=== PATIENT | male | born 1965 | race Caucasian/White ===

== ENCOUNTER 2023-09-19 17:00 | Inpatient (IN) | payer OTHER, MEDICAID, SELFPAY ==
[2023-09-19] VITALS (13 sets, daily range): BP systolic 118–186; BP diastolic 68–105; BMI 26.8
--- NOTE | 2023-09-19 08:58 | W.PN.CARDCBS ---
Today's Communication / Plan
-
MICRA leadless pacemaker implant
wound care consult
Impression / Plan
-
PCP: Floyd Solano MD
CDY: Nestor Richards DO
58 y/o, PMH sig for Inferior STEMI with distal RCA PCI (2016), residual CAD in LAD, mid RCA that is medically managed, 2nd deg AVB/Mobitz I with baseline bradycardia, DM, HTN, HLD, [id number], mild cognitive impairment, prior infected right heel
non-healing wound (2016) and osteomyelitis right foot s/p 4th toe amputation with 5th toe base resection with flap closure that failed (08/01/23) and is managed by wound care. EF was moderately reduced to 44% at time of STEMI. Lives at [place]
[facility] [address]. Daily pipe use, but no alcohol for 3 years.
Presented to [facility] on 09/15 with chest pain and dyspnea. CXR with cardiomegaly, CHF. EKG with 2nd deg AVB/Mobitz II as well as CHB with rates 30-50s.
Transferred for MICRA leadless pacemaker implant today. Decision for MICRA based on osteomyelitis and high risk for infection as well as CKD and likely future need for hemodialysis.
IMPRESSION:
CHB/2nd Deg AVB/Mobitz I & II
Non reversible symptomatic bradycardia
Right foot osteomyelitis, prior Left great toe and 2nd toe amputation
Right 4th toe amputation with 5th toe base resection, 08/01/23 w/failed rotation flap closure (wound care with [facility])
Cardiomyopathy
Chronic Systolic HFmrEF 44%
CAD, prior STEMI w/RCA PCI (2016)
Residual CAD LAD, mid RCA- medical management
DM
HTN
HLD
[id number]
GERD
Mild cognitive impairment
PLAN:
Pt is in CHB with rates 30-50
High infection risk d/t osteo, long history of recurrent infections, and possible need for HD in the future
Plan for MICRA leadless device implant
On max sandie GDMT for HF- farxiga, torsemide, lisinopril, amlodipine
Had been intolerant of beta didier previously d/t bradycardia/HB- consider starting beta didier post for cardiomyopathy/HF management
No recent echo noted- would have primary cardiology manage this as outpt
CAD- HS troponins remained flat at 75, continue aspirin, plavix, atorvastatin, lisinopril
Podiatry (Dr. Jordan) managing osteomyelitis and post surgical management with wound care through [facility]- will continue at d/c
Monitor overnight on tele post device implant
wound care consult while here
Likely d/c in AM
Progress Note - Warp Knit Operator
Subjective
Date of Service: September 19, 2023
Physical Exam
Physical Exam
AAOx3, MAEE 5/5
RRR S1 S2 no murmurs, bradycardia
CTA bilat, non labored
soft abd, + bs
trace to +1 edema bilat ankles
Left foot- well healed great toe/2nd toe amputation, doppler PT +2
Right foot- 4th great toe amputation with open wound/brown and white eschar in wound, dressing dry and intact, doppler PT +2
--- NOTE | 2023-09-19 13:20 | WOUNDNOTE ---
Right 4th Toe amputation site
--- NOTE | 2023-09-19 13:21 | WOUNDNOTE ---
[facility] RN NOTE: Reviewed chart, met with patient. Patient is s/p prior osteomyelitis right foot s/p 4th toe amputation with 5th toe base resection with flap closure that failed (08/01/23) and is managed by his business management analyst and VN. Patient reports that VN
perform wound care 2-3 times weekly with collagen. A moderate amount of sanguinous, non-odorous drainage noted on dressing. Patient reports this is usual. Wound cleaned and local wound care completed. Sacrum intact. Will continue to follow as
needed. Discharge and careplan updated.
[2023-09-19 14:10] LABS: Glucose - Point of Care 81 mg/dl (70-99)
--- NOTE | 2023-09-19 15:36 | ITS.CL.PACE ---
[facility] - Pacemaker Implant
Pacemaker Implant
Procedure Report:
LEADLESS PACEMAKER IMPLANTATION
DATE: September 19, 2023
Primary product inspection supervisor: Dr. Mansoor Watson
INDICATION:
Nonreversible symptomatic bradycardia due to high-grade AV block with no reversible cause. Periods of complete heart block. Symptomatic.
Additionally he has been prone to systemic infection including osteomyelitis. He has severe renal insufficiency and it is expected he will likely need hemodialysis in the near future.
longwall headgate operator: Dr Moises Byrd
PROCEDURE:
Sedation provided via the anesthesia department.
Femoral intravenous access is obtained. Right femoral venous access initially with an 8 Bhutanese sheath progressively dilated upwards to allow placement of the Medtronic Micra 27 Bhutanese introducer venous sheath.
The Medtronic Micra delivery system (deflectable catheter with Micra device) was then introduced via the introducer/sheath into the RA. The sheath was then withdrawn to the level of the IVC. Using multiple fluoroscopic views, the delivery system was
then guided across the TV into the RV. The Micra device was deployed and had to be repositioned several times until finally achieving an optimal location. At every deployment, prior to deployment angiography found that the sheath tip/device was up
against the septum in the GERA view and in the ZHENG view an anterior space sign was always observed. A basal septal location provided the best and most stable sensing and capture. Testing demonstrated adequate and stable parameters. Pull and hold
test was successful and repeat testing demonstrated stable parameters. The tether was removed and repeat testing demonstrated stable parameters. The introducer / sheath were removed.
Figure of 8 stitch was used to close the venous access sites.
DEVICE:
Medtronic MICRA AVR system [id number]
Capture threshold: 0.88 V @0.24 ms
R wave sensing 4.8 mV
Pacing impedance: 470 ohms
Wiliam pacing mode: VDD 60 - 130 ppm
COMPLICATIONS: None
SUMMARY / RECOMMENDATIONS:
Implantation of leadless pacing system
[2023-09-19 16:24] LABS: Glucose - Point of Care 126 mg/dl (70-99)
[2023-09-19] MEDS: NORVASC 10 MG PO (16:48)
[2023-09-19] MEDS: NOVOLOG FLEXPEN-MODERATE RESISTANCE SC (17:50)
[2023-09-19] MEDS: LOW STRENGTH ASPIRIN 81 MG PO (17:59)
[2023-09-19] MEDS: CRESTOR 40 MG PO (17:59)
--- NOTE | 2023-09-19 19:45 | PTCARENOTE ---
Pt received from cath recovery area post micra pacemaker insertion. Right femoral dressing dry and intact, no sign of bleeding or hematoma. Pt needing very frequent reminders to stay in bed. No void yet as pt cannot use urinal lying down and he
firmly declines to be straight cath'd. Telemetry shows V paced rhythm. Will watch pt closely.
[2023-09-19] MEDS: NEURONTIN 200 MG PO (20:41)
[2023-09-19] MEDS: PEPCID 20 MG PO (20:41)
[2023-09-19 21:50] LABS: Glucose - Point of Care 321 mg/dl (70-99)
[2023-09-19] MEDS: NOVOLOG MIX 70/30 FLEXPEN 28 UNITS SC (23:03)
--- NOTE | 2023-09-19 23:49 | PTCARENOTE ---
Figure 8 sutures pulled at 2114. Pt tolerated well. small ooze noted post. Drsg with small amt noted at this time. Pt up oob with nursing staff to void at bedside. FLIPPING MACHINE OPERATOR on telemetry
[2023-09-20 03:29] VITALS: BP 152/78
[2023-09-20] MEDS: TYLENOL 650 MG PO (03:33)
[2023-09-20 04:23] LABS: Hematocrit 32.7 % (39.0-52.0); Hemoglobin 10.5 g/dL (13.0-18.0); Mean Corp Hgb Conc. 32.1 g/dL (33.0-37.0); Mean Corpuscular Hgb 24.7 pg (27.0-31.0); Mean Corpuscular Volume 76.9 fL (80.0-94.0); Mean Platelet Volume 10.6 fL (7.4-10.4); Platelet Count 234 10^3/uL (130-400); Red Blood Cell Count 4.25 10^6/uL (4.70-6.10); Red Cell Dist. Width 15.7 % (11.5-14.5); White Blood Cell Count 3.2 10^3/uL (4.8-10.8)
[2023-09-20 04:47] LABS: Blood Urea Nitrogen 38 mg/dl (9-20); Calcium 9.4 mg/dl (8.4-10.2); Carbon Dioxide 21 mmol/L (22-30); Chloride 107 mmol/L (98-107); Estimated Creatinine Clearance 54 ml/min; Glucose 134 mg/dl (70-99); Magnesium 2.2 mg/dl (1.6-2.3); Potassium 5.1 mmol/L (3.5-5.1); Sodium 135 mmol/L (135-145); eGFR 46.44
[2023-09-20 07:05] VITALS: BP 167/89
[2023-09-20 07:09] LABS: Glucose - Point of Care 138 mg/dl (70-99)
[2023-09-20] MEDS: NOVOLOG FLEXPEN-MODERATE RESISTANCE SC (07:30)
--- NOTE | 2023-09-20 08:08 | W.PN.CARDCBS ---
Addendum entered and electronically signed by Rick Browne MD 09/20/23 11:32:
patient seen and examined
agree with TUBE WASHER note and assessment
agree with TUBE WASHER plan
exam:
right groin cdi
tele v pace
underlying chb
aao x 3
non focal neurologically
IMPRESSION:
CHB/2nd Deg AVB/Mobitz I & II
Non reversible symptomatic bradycardia
Right foot osteomyelitis, prior Left great toe and 2nd toe amputation
Right 4th toe amputation with 5th toe base resection, 08/01/23 w/failed rotation flap closure (wound care with [facility])
Cardiomyopathy
Chronic Systolic HFmrEF 44%
CAD, prior STEMI w/RCA PCI (2016)
Residual CAD LAD, mid RCA- medical management
DM
HTN
HLD
[id number]
GERD
Mild cognitive impairment
PLAN:
post MICRA leadless PPM 09/19/23
groin stable
tele Vpaced
feels '90% better' this am
he was at a high infection risk d/t osteo, long history of recurrent infections, and possible need for HD in the future
On max sandie GDMT for HF- farxiga, torsemide, lisinopril, amlodipine
Had been intolerant of beta didier previously d/t bradycardia/HB- defer to outpt fabric normalizer to eval/initiate
No recent echo noted- would have primary cardiology manage this as outpt
CAD- HS troponins remained flat at 75, continue aspirin, plavix, atorvastatin, lisinopril
Podiatry (Dr. Jordan) managing osteomyelitis and post surgical management with wound care through [facility]- will continue at d/c
wound care consult while here
f/u apt Dr. Richards 2-4 weeks
stable for d/c home
Original Note:
Today's Communication / Plan
-
post MICRA
stable for d/c home
Impression / Plan
-
PCP: Floyd Solano MD
CDY: Netsor Richards DO
58 y/o, PMH sig for Inferior STEMI with distal RCA PCI (2016), residual CAD in LAD, mid RCA that is medically managed, 2nd deg AVB/Mobitz I with baseline bradycardia, DM, HTN, HLD, HNA1q-0, mild cognitive impairment, prior infected right heel
non-healing wound (2016) and osteomyelitis right foot s/p 4th toe amputation with 5th toe base resection with flap closure that failed (08/01/23) and is managed by wound care. EF was moderately reduced to 44% at time of STEMI. Lives at [facility]
apartments. Daily pipe use, but no alcohol for 3 years.
Presented to [facility] on 09/15 with chest pain and dyspnea. CXR with cardiomegaly, CHF. EKG with 2nd deg AVB/Mobitz II as well as CHB with rates 30-50s.
Transferred for MICRA leadless pacemaker implant today. Decision for MICRA based on osteomyelitis and high risk for infection as well as CKD and likely future need for hemodialysis.
IMPRESSION:
CHB/2nd Deg AVB/Mobitz I & II
Non reversible symptomatic bradycardia
Right foot osteomyelitis, prior Left great toe and 2nd toe amputation
Right 4th toe amputation with 5th toe base resection, 08/01/23 w/failed rotation flap closure (wound care with [facility])
Cardiomyopathy
Chronic Systolic HFmrEF 44%
CAD, prior STEMI w/RCA PCI (2016)
Residual CAD LAD, mid RCA- medical management
DM
HTN
HLD
[id number]
GERD
Mild cognitive impairment
PLAN:
post MICRA leadless PPM 09/19/23
groin stable
tele Vpaced
feels '90% better' this am
he was at a high infection risk d/t osteo, long history of recurrent infections, and possible need for HD in the future
On max sandie GDMT for HF- farxiga, torsemide, lisinopril, amlodipine
Had been intolerant of beta didier previously d/t bradycardia/HB- defer to outpt fabric normalizer to eval/initiate
No recent echo noted- would have primary cardiology manage this as outpt
CAD- HS troponins remained flat at 75, continue aspirin, plavix, atorvastatin, lisinopril
Podiatry (Dr. Jordan) managing osteomyelitis and post surgical management with wound care through [facility]- will continue at d/c
wound care consult while here
f/u apt Dr. Richards 2-4 weeks
stable for d/c home
Progress Note - Fortune Cookie Maker
Subjective
Date of Service: September 20, 2023
no cp, sob, feels great this am
Objective
Labs:
09/20/23 03:46
09/20/23 03:46
Labs
Hgb 10.5 g/dL (13.0-18.0) L 09/20/23 03:46
Hct 32.7 % (39.0-52.0) L 09/20/23 03:46
Plt Count 234 10^3/uL (130-400) 09/20/23 03:46
Sodium 135 mmol/L (135-145) 09/20/23 03:46
Potassium 5.1 mmol/L (3.5-5.1) 09/20/23 03:46
BUN 38 mg/dl (9-20) H 09/20/23 03:46
Creatinine 1.7 mg/dL (0.7-1.3) H 09/20/23 03:46
Glucose 134 mg/dl (70-99) H 09/20/23 03:46
Vital Signs and I&O:
Vital Signs
Temp Pulse Resp BP Pulse Ox
97.4 F 60 20 167/89 100
09/20/23 07:03 09/20/23 07:45 09/20/23 07:03 09/20/23 07:05 09/20/23 07:03
Vital Signs
Temp Pulse Resp BP Pulse Ox
97.4 F 60 20 167/89 100
09/20/23 07:03 09/20/23 07:45 09/20/23 07:03 09/20/23 07:05 09/20/23 07:03
Intake & Output
09/18/23 09/19/23 09/20/23 09/21/23
06:59 06:59 06:59 06:59
Output Total 1500 / 1500
Balance -1500 / -1500
Physical Exam
Physical Exam
NAD, AOX3
S1, S2, RRR
CTAB, non labored
SNTND bsx4
R fem site c/d/i no HT
[2023-09-20 08:42] LABS: Glycohemoglobin (HgbA1c) 7.5 % (4.0-5.6)
[2023-09-20] MEDS: FARXIGA 10 MG PO (08:48)
[2023-09-20] MEDS: LOW STRENGTH ASPIRIN 81 MG PO (08:49)
[2023-09-20] MEDS: NORVASC 10 MG PO (08:49)
[2023-09-20] MEDS: PEPCID 20 MG PO (08:49)
[2023-09-20] MEDS: NEURONTIN 200 MG PO (08:49)
[2023-09-20] MEDS: PLAVIX 75 MG PO (08:50)
[2023-09-20] MEDS: ZESTRIL 10 MG PO (08:50)
[2023-09-20] MEDS: ZETIA 10 MG PO (08:50)
[2023-09-20] MEDS: LANTUS 0.239999999999999991 UNITS SC (08:52)
--- NOTE | 2023-09-20 09:12 | CM ---
Addendum entered by Whit Juárez 09/20/23 09:53:
[facility] who states they do not accept [employer]. [facility] to make the referral. Referral sent. Met with Mr. Green to update him on [facility]
changing due to his new insurance. Medical work-up in progress. The discharge plan is to return home with [facility] when medically stable.
Original Note:
Reviewed chart. Met with Mr. Green to review discharge plans. He states prior to admission he resides alone in an apartment without any steps to enter. He states prior to admission he ambulates with a rollator. He states he is independent with
adls, except he needs reminders to take his medications. He states he has a shower chair, Rolling walker, rollatoe and wheelchair at home. He states he was getting [facility] in the past. [facility] is agree[facility] to [facility]. Telephone call to [facility] to make the referral. Sent the referral. [facility] will need to check his insurance. If he does have [employer]. They do not accept this insurance. He states he has a
prescription plan. Medical work-up in progress. The discharge plan is to return home with [facility] when medically stable.
--- NOTE | 2023-09-20 09:34 | W.DS.TRANS ---
DC Summary - Cranberry Grower
-
Discharge Instructions:
Discharge Diagnosis/Procedures MICRA pacemaker implant
Diet Low Cholesterol,Diabetic, Carb Controlled
Driving Restrictions No driving
Instructions:
Stand-Alone Forms: DC Instructions- Cath/EP Lab
Changes to Home Medications: No
Discharge Medications:
DC Medications w/original date entered in [facility]
acetaminophen 325 mg tablet 2 tab PO PRN PRN pain 09/05/16
insulin aspar prot-insulin aspart 100 unit/mL (70-30) subcutaneous pen (Novolog Mix 70-30FlexPen U-100) 28 units SC HS Diabetes 09/05/16
aspirin 81 mg chewable tablet 81 mg PO DAILY 09/08/16
clopidogrel 75 mg tablet 75 mg PO DAILY ##90 09/08/16
amlodipine 10 mg tablet 10 mg PO DAILY Blood Pressure 09/19/23
ascorbic acid (vitamin C) 250 mg chewable tablet (Vitamin C) 250 mg PO DAILY Supplement 09/19/23
dapagliflozin propanediol 10 mg tablet (Farxiga) 10 mg PO DAILY Diabetes 09/19/23
dulaglutide 4.5 mg/0.5 mL subcutaneous pen injector (Trulicity) 4.5 mg SC QWEEK Diabetes 09/19/23
evolocumab 140 mg/mL subcutaneous syringe (Repatha Syringe) 140 mg SC Q2W Antilipemic Agent, PCSK9 Inhibitor; Monoclonal Antibody 09/19/23
ezetimibe 10 mg tablet 10 mg PO DAILY High Cholesterol 09/19/23
famotidine 20 mg tablet 20 mg PO BID Gastrointestinal Issue 09/19/23
finerenone 10 mg tablet (Kerendia) 10 mg PO HS Mineralocorticoid (Aldosterone) Receptor Antagonist; 09/19/23
fluticasone furoate 27.5 mcg/actuation nasal spray,suspension 1 spray intranasal DAILY INFLAMMATION 09/19/23
gabapentin 100 mg capsule 200 mg PO BID Pain 09/19/23
glucagon 1 mg/0.2 mL subcutaneous auto-injector (Gvoke HypoPen 2-Pack) 1 mg SC ONCE GLUCAGON 09/19/23
insulin aspart U-100 100 unit/mL subcutaneous solution (Novolog U-100 Insulin aspart) 6 unit SC DAILY Diabetes 09/19/23
insulin degludec 100 unit/mL (3 mL) subcutaneous pen (Tresiba FlexTouch U-100 insulin) 24 unit SC DAILY Diabetes 09/19/23
lisinopril 10 mg tablet 10 mg PO DAILY Blood Pressure 09/19/23
multivitamin 1 tab PO DAILY Supplement 09/19/23
rosuvastatin 40 mg tablet 40 mg PO DAILY High Cholesterol 09/19/23
torsemide 10 mg tablet 10 mg PO DAILY Fluid Retention/Swelling 09/19/23
Home Medication Changes
Pending Results: No
--- NOTE | 2023-09-20 10:22 | PTCARENOTE ---
Received patient this morning sitting oob in the chair. Right groin dressing is dry and intact with DP pulse palpable via doppler. Patient was seen by cardiology and is ok for discharge. Patient unable to get transportation home until after lunch.
Patient ambulating now in the halls with rolling walker.
[2023-09-20 11:00] VITALS: BP 172/76
[2023-09-20] MEDS: APRESOLINE 10 MG IV (11:05)
[2023-09-20] MEDS: NOVOLOG FLEXPEN-MODERATE RESISTANCE 5 UNITS SC (11:39)
[2023-09-20 11:40] LABS: Glucose - Point of Care 280 mg/dl (70-99)
[2023-09-20 11:45] VITALS: BP 148/78
--- NOTE | 2023-09-20 11:48 | PTCARENOTE ---
Patient very anxious to go home, has a ride coming at 1:00 but was trying to enable uber rob without success and very frustrated. BP > 160, given IV hydralazine IV as ordered. Wound dressing changed right 4th toe. Patient now heard from his ride
that they will be here closer to 12:30 which made him happy. BP now 148/78, waiting for lunch. Reviewed discharge instructions and he states his understanding, will be followed by VN at discharge.
== END 2023-09-20 12:36 | disposition home health service (06) | DRG 229 ==
LOC: IVU 17:00
PROVIDERS: Nurse Practitioner Adult Health; ADMITTING PHYSICIAN Internal Medicine Cardiovascular Disease; FAMILY PHYSICIAN Internal Medicine
PROC: 02HK3NZ Insertion of Intracardiac Pacemaker into Right Ventricle, Percutaneous Approach (ICD-10-PCS; 2023-09-19)
DX: I44.2 Atrioventricular block, complete (principal); I13.0 Hypertensive heart and chronic kidney disease with heart failure and stage 1 through stage 4 chronic kidney disease, or unspecified chronic kidney disease; I42.9 Cardiomyopathy, unspecified; I50.22 Chronic systolic (congestive) heart failure; R00.1 Bradycardia, unspecified; I25.10 Atherosclerotic heart disease of native coronary artery without angina pectoris; N18.32 Chronic kidney disease, stage 3b; E11.22 Type 2 diabetes mellitus with diabetic chronic kidney disease; K21.9 Gastro-esophageal reflux disease without esophagitis; G31.84 Mild cognitive impairment of uncertain or unknown etiology; E11.51 Type 2 diabetes mellitus with diabetic peripheral angiopathy without gangrene; E78.00 Pure hypercholesterolemia, unspecified; I25.2 Old myocardial infarction; Z79.4 Long term (current) use of insulin; Z79.82 Long term (current) use of aspirin; Z79.899 Other long term (current) drug therapy; Z89.411 Acquired absence of right great toe; Z89.421 Acquired absence of other right toe(s); Z89.422 Acquired absence of other left toe(s); Z95.5 Presence of coronary angioplasty implant and graft
CPT/HCPCS: 33274; 80048; 82962; 83036; 83735; 85027; 87070; 93005; C1769; C1786; C1894; Q9967